=== PATIENT | female | born 1950 ===

== ENCOUNTER 2021-02-05 09:04 | Emergency (ER) | payer OTHER ==
[~2021-02-05] VITALS: Ht 157.5 cm; Wt 62.1 kg
[2021-02-05 10:48] VITALS: BP 154/87
[2021-02-05] MEDS ORDERED: LIDOCAINE 1% HCL (LOCAL ANESTH.) INJ 20ML MDV IJ ONE (11:00)
== END 2021-02-05 11:12 | disposition home or self-care (01) ==
LOC: ER 09:04
DX: S61.215A Laceration without foreign body of left ring finger without damage to nail, initial encounter (principal); I10 Essential (primary) hypertension; W26.0XXA Contact with knife, initial encounter; Y93.89 Activity, other specified; Y92.89 Other specified places as the place of occurrence of the external cause; Y99.8 Other external cause status
CPT/HCPCS: 12002; J2001